=== PATIENT | male | born 1980 | race Caucasian/White ===

== ENCOUNTER 2017-12-27 15:59 | Emergency (ER) | payer OTHER, MEDICAID ==
[2017-12-27] MEDS ORDERED: HYDROmorphone 2 MG/ML Syringe SUBCUT ONE (16:20)
[2017-12-27] MEDS ORDERED: ceFAZolin 1 GM in Sodium Chloride 0.9% 50 ML IV ONE (16:47)
[2017-12-27] MEDS ORDERED: Morphine 5 MG/ML SDV IVPUSH ONE (16:47)
[2017-12-27] MEDS ORDERED: Morphine 10 MG/ML Syringe ONE (16:56)
[2017-12-27] MEDS ORDERED: Ketorolac 30 MG/ML SDV IVPUSH ONE (18:15)
[2017-12-27] MEDS ORDERED: Ketorolac 30 MG/ML SDV ONE (18:28)
[2017-12-27] MEDS ORDERED: Diphtheria/Tetanus Toxoids,Adult (Td) 0.5 ML SDV ONE (18:40)
[2017-12-27] MEDS ORDERED: Diphtheria,Pertussis(Acell),Tetanus Vaccine 0.5 ML SDV inactive IM ONE (18:44)
--- NOTE | 2017-12-27 20:27 | CR ---
DATE OF SERVICE: 12/27/2017 CLINICAL DATA: Injury. RIGHT 5TH DIGIT: There is a comminuted, mildly displaced fracture through the base of the distal phalanx. There is mild ventral and lateral displacement of the distal fragment with respect to the proximal. No other acute abnormalities. [id number] [facility]
[2017-12-27 22:15] VITALS: BP 144/89
--- NOTE | 2017-12-27 23:55 | ER ---
HISTORY OF PRESENT ILLNESS: A 37-year-old male, here after sustaining a laceration-type injury to the right fifth finger. He was carrying a boiler tank for a stove he tells me, that it was heavy, with another man, it slipped and when it fell, it landed on his fifth finger. The patient denies any other injuries. He states the end of his finger is slightly numb, but the area is significantly painful. They did apply pressure to the area to try to stop the bleeding. They think it has stopped on the way in the town. The patient is otherwise healthy. CURRENT MEDICATIONS: He is on Zithromax. ALLERGIES: PENICILLIN. OBJECTIVE: GENERAL APPEARANCE: The patient is awake and alert. He is obviously uncomfortable with pain. VITAL SIGNS: Reviewed as listed. EXTREMITIES: Examining the right fifth finger reveals a laceration across the dorsal aspect of the fifth finger that starts out down the medial and side of the PIP joint proximal to that and goes lateral across towards the lateral side of the finger distal to the PIP joint. The end of the finger is tipped in medially slightly and is slightly dusky in appearance. There is no active bleeding at this time. IMAGING: X-ray of the finger shows a fracture of the distal phalanx that does involve the joint space on the medial side. DIAGNOSIS: Deep laceration to right fifth finger with an open fracture. TREATMENT PLAN: I did consult with Dr. Kirkland with the following. I will cleanse the site well, suture it loosely. The patient will be given a tetanus booster as well as antibiotics, and he will follow up with Dr. Kirkland tomorrow in [place]. At this point, an IV was started, the patient had been given Dilaudid 2 mg subcu initially. I added morphine 5 mg IV. This seemed to help the patient's pain. At this point, I cleansed the entire finger. I then injected 5 mL of 1% lidocaine in a digital block at the base of the finger and this did provide good pain control for the patient. I then irrigated the site with 150 mL of normal saline with mild pressure applied. There is significant subcu damage down to just below the bone level. Again, there is no active bleeding at this time other than minimal due to the irrigation. I then sutured putting in several sutures. The laceration is about 2 cm long. The sutures were 5-0 Ethilon and they were left slightly loose per Orthopedics' direction. The patient was given Ancef 1 g IV. I did give him Toradol 30 mg IV as well after which we applied a splint that was covered with a pressure dressing that encompassed the third, fourth, and fifth fingers on the right hand. The patient is to keep his hand elevated as much as possible. I will give him Percocet tablets to go home with, 1 or 2 tablets every 6 hours, and they are to follow up at Dr. Kirkland's clinic tomorrow morning in [place]. The patient and his have no further questions. ZACH/MODL /[id number]
== END 2017-12-27 18:55 | disposition home or self-care (01) ==
LOC: LB.ED 15:59
DX: S62.636B Displaced fracture of distal phalanx of right little finger, initial encounter for open fracture (principal); S61.216A Laceration without foreign body of right little finger without damage to nail, initial encounter; Z88.0 Allergy status to penicillin; W20.8XXA Other cause of strike by thrown, projected or falling object, initial encounter; Z23 Encounter for immunization
CPT/HCPCS: 12001; 73140-F9; 90471; 90714; 96372; 96374; 96375; 99283; 99283-25; J0690; J1170; J1885; J2270; J7030; J7050

== ENCOUNTER 2020-07-17 14:16 | Emergency (ER) | payer SELFPAY ==
--- NOTE | 2020-07-17 14:35 | EDM.PDOC ---
ED HPI GENERAL MEDICAL PROBLEM - General Chief Complaint: Skin Complaint Stated Complaint: INDENTION IN LEG Time Seen by Provider: 07/17/20 14:18 Source of Information: Reports: Patient History Limitations: Reports: No Limitations - History of Present Illness INITIAL COMMENTS - FREE TEXT/NARRATIVE: patient states he has had a red, sore hardened area in his left groin area x 5 d ays. Last night it started draining. He continues to have pain, drainage minimal. Duration: Hour(s): Location: Reports: Other (groin left side) Quality: Reports: Throbbing Severity: Mild Improves with: Reports: None Worsens with: Reports: None Associated Symptoms: Reports: No Other Symptoms - Related Data Allergies Allergy/AdvReac Type Severity Reaction Status Date / Time Penicillins Allergy Mild felt warm Verified 12/27/17 16:19 Home Meds: Home Meds Aspirin 162 mg PO DAILY 07/17/20 [History] Doxycycline [Vibramycin] 100 mg PO BID #20 cap 07/17/20 [Rx] Ibuprofen [Ibu] 800 mg PO BID 07/17/20 [History] Loratadine 10 mg PO DAILY 07/17/20 [History] atorvaSTATin [Lipitor] 10 mg PO BEDTIME 07/17/20 [History] hydroCHLOROthiazide [Hydrochlorothiazide] 12 mg PO DAILY 07/17/20 [History] metFORMIN HCl [Metformin HCl ER] 500 mg PO DAILY 07/17/20 [History] Past Medical History HEENT History: Reports: Impaired Vision Cardiovascular History: Reports: None Respiratory History: Reports: Other (See Below) Other Respiratory History: lung issues when smoked Gastrointestinal History: Reports: GERD Genitourinary History: Reports: None Musculoskeletal History: Reports: Back Pain, Chronic, Other (See Below) Other Musculoskeletal History: 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 Psychiatric History: Reports: Depression Endocrine/Metabolic History: Reports: None Hematologic History: Reports: None Immunologic History: Reports: None Oncologic (Cancer) History: Reports: None Dermatologic History: Reports: None - Past Surgical History Neurological Surgical History: Reports: Discectomy, Lumbar Spine Musculoskeletal Surgical History: Reports: Arthroscopic Procedure, Other (See Below) ED ROS GENERAL - Review of Systems Review Of Systems: See Below Constitutional: Reports: No Symptoms HEENT: Reports: No Symptoms Respiratory: Reports: No Symptoms Cardiovascular: Reports: No Symptoms Endocrine: Reports: No Symptoms GI/Abdominal: Reports: No Symptoms Musculoskeletal: Reports: No Symptoms Skin: Reports: Erythema, Wound Neurological: Reports: No Symptoms Psychiatric: Reports: No Symptoms Hematologic/Lymphatic: Reports: No Symptoms ED EXAM, SKIN/RASH Exam: See Below Exam Limited By: No Limitations General Appearance: Alert, No Apparent Distress Ears: Normal External Exam Nose: Normal Inspection Head: Atraumatic Respiratory/Chest: No Respiratory Distress Extremities: Normal Inspection Neurological: Alert, Oriented, No Motor/Sensory Deficits Psychiatric: Normal Affect, Normal Mood Skin: Warm, Dry, Erythema, Increased Warmth, Wound/Incision Location, Skin: Groin Characteristics: Bullous, Erythematous Associated features: Warmth, Tenderness, Swelling, Inflammation Lymphatic: No Adenopathy Departure - Departure Time of Disposition: 14:39 Disposition: Admitted As Inpatient 67 Condition: Good Clinical Impression: Abscess - Discharge Information *PRESCRIPTION DRUG MONITORING PROGRAM REVIEWED*: Not Applicable *COPY OF PRESCRIPTION DRUG MONITORING REPORT IN PATIENT LYNDON: Not Applicable Prescriptions: Doxycycline [Vibramycin] 100 mg PO BID #20 cap Instructions: Skin Abscess, Skin Abscess, [id number] Referrals: PCP,None [Primary Care Provider] - Forms: ED Department Discharge Additional Instructions: Take the doxycycline twice daily for 10 days. Ibuprofen for pain as needed. Be sure to use sitz baths or warm wet compressess 3-4 times daily. Watch for signs of increased infection as discussed. Return to ED for any increased or new concerning symptoms.
[2020-07-17 14:45] VITALS: BP 135/87; PULSE 73
== END 2020-07-17 14:38 | disposition home or self-care (01) ==
LOC: LB.ED 14:16
DX: L02.214 Cutaneous abscess of groin (principal); Z88.0 Allergy status to penicillin
CPT/HCPCS: 99282

== ENCOUNTER 2022-02-19 09:56 | Emergency (ER) | payer BC ==
[2022-02-19 10:49] VITALS: BP 148/102; PULSE 83
[2022-02-19] MEDS: Ketorolac 60 MG/2 ML SDV IM ONE (11:00)
[2022-02-19] MEDS: Ketorolac 60 MG/2 ML SDV ONE (11:03)
== END 2022-02-19 12:05 | disposition home or self-care (01) ==
LOC: LB.ED 09:56
DX: R42 Dizziness and giddiness (principal); J32.9 Chronic sinusitis, unspecified; E78.00 Pure hypercholesterolemia, unspecified; I10 Essential (primary) hypertension; E11.9 Type 2 diabetes mellitus without complications; K21.9 Gastro-esophageal reflux disease without esophagitis; Z88.0 Allergy status to penicillin; Z79.899 Other long term (current) drug therapy; Z20.822 Contact with and (suspected) exposure to COVID-19
CPT/HCPCS: 36415; 70450; 80053; 84484; 85025; 93005; 96372; 99284-25; J1885; U0002

== ENCOUNTER 2023-12-10 13:01 | Emergency (ER) | payer OTHER ==
[2023-12-10 13:43] LABS: HEMOGLOBIN 13.6 g/dL (13.0-18.0); MEAN CORPUSCULAR HEMOGLOBIN 26.8 pg (27.0-32.0); MEAN CORPUSCULAR HGB CONC 33.2 g/dL (31.0-35.0); MEAN PLATELET VOLUME 8.9 fL (6.0-10.0); RED BLOOD CELL COUNT 5.07 M/uL (4.50-6.50); RED CELL DISTRIBUTION WIDTH 13.7 % (11.0-16.0); WHITE BLOOD CELL COUNT,WBC 12.6 K/uL (4.0-11.0)
[2023-12-10 14:32] LABS: ANION GAP 14.9 mmol/L (5.0-15.0); BUN/CREATININE RATIO 24.1 (6-25); CALCIUM 8.8 mg/dL (8.5-10.1); CARBON DIOXIDE,CO2 24.9 mmol/L (21.0-32.0); CREATININE 0.79 mg/dL (0.70-1.30); EST CRCL DRUG DOSING (CG) 137.66 mL/min; MAGNESIUM 1.9 mg/dL (1.8-2.4); PHOSPHORUS 3.1 mg/dL (2.5-4.9); POTASSIUM,K 3.8 mmol/L (3.5-5.1); TSH ULTRASENSITIVE 0.644 uIU/mL (0.358-3.740)
[2023-12-10 16:12] LABS: HEMOGLOBIN A1C 6.8 % (< 5.7)
[2023-12-10 17:48] VITALS: BP 135/82; PULSE 74
== END 2023-12-10 15:45 | disposition home or self-care (01) ==
LOC: LB.ED 13:01
DX: R00.2 Palpitations (principal); I10 Essential (primary) hypertension; E11.9 Type 2 diabetes mellitus without complications; Z87.891 Personal history of nicotine dependence; Z79.899 Other long term (current) drug therapy; Z88.0 Allergy status to penicillin
CPT/HCPCS: 36415; 71046; 80048; 82947; 83036; 83735; 84100; 84443; 84484; 85027; 93005; 99285

== ENCOUNTER 2024-01-07 17:36 | Emergency (ER) | payer OTHER ==
[2024-01-07] MEDS: GI Cocktail Oral Solution 30 ML PO ONE (17:48)
[2024-01-07 18:39] LABS: BASOPHILS ABSOLUTE AUTO 0.04 K/uL (0.02-0.10); BASOPHILS PERCENT AUTO 0.3 % (0.0-0.5); EOSINOPHILS ABSOLUTE AUTO 0.18 K/uL (0.04-0.40); EOSINOPHILS PERCENT AUTO 1.3 % (1.0-5.0); HEMATOCRIT 44.7 % (40.0-54.0); HEMOGLOBIN 13.4 g/dL (13.0-18.0); LYMPHOCYTES PERCENT AUTO 30.6 % (20.0-40.0); MEAN CORPUSCULAR HEMOGLOBIN 26.7 pg (27.0-32.0); MEAN CORPUSCULAR VOLUME 89 fL (76-96); MEAN PLATELET VOLUME 9.5 fL (6.0-10.0); MONOCYTES ABSOLUTE AUTO 0.98 K/uL (0.20-0.80); MONOCYTES PERCENT AUTO 7.3 % (3.0-10.0); NEUTROPHILS ABSOLUTE AUTO 8.09 K/uL (2.00-7.50); NEUTROPHILS PERCENT AUTO 60.5 % (45.0-70.0); PLATELET COUNT,PLT 314 K/uL (150-400); RED BLOOD CELL COUNT 5.01 M/uL (4.50-6.50); WHITE BLOOD CELL COUNT,WBC 13.4 K/uL (4.0-11.0)
[2024-01-07 19:00] LABS: ALBUMIN 3.5 g/dL (3.4-5.0); ANION GAP 12.9 mmol/L (5.0-15.0); BILIRUBIN TOTAL 0.4 mg/dL (0.0-1.0); BUN/CREATININE RATIO 22.9 (6-25); CALCIUM 8.4 mg/dL (8.5-10.1); CARBON DIOXIDE,CO2 25.8 mmol/L (21.0-32.0); CREATININE 0.7 mg/dL (0.70-1.30); EST CRCL DRUG DOSING (CG) 150.89 mL/min; POTASSIUM,K 3.7 mmol/L (3.5-5.1)
[2024-01-07 19:22] VITALS: BP 150/97; PULSE 72
== END 2024-01-07 19:30 | disposition home or self-care (01) ==
LOC: LB.ED 17:36
DX: I10 Essential (primary) hypertension (principal); K21.9 Gastro-esophageal reflux disease without esophagitis; E11.9 Type 2 diabetes mellitus without complications; Z88.0 Allergy status to penicillin
CPT/HCPCS: 36415; 71046; 80053; 84484; 85025; 93005; 99285; A9270; 93010; 99283